=== PATIENT | female | born 1960 | race Caucasian/White ===

== ENCOUNTER 2017-11-24 09:19 | Emergency (ER) | payer MEDICARE, OTHER ==
[~2017-11-24] VITALS: Ht 167.6 cm; Wt 69.2 kg
[2017-11-24] MEDS ORDERED: ONDANSETRON ODT 4 MG PO ONE (10:00)
[2017-11-24] MEDS ORDERED: DIAZEPAM 5 MG TABLET PO ONE (10:00)
[2017-11-24] MEDS ORDERED: ONDANSETRON ODT 4 MG ONE (10:08)
[2017-11-24] MEDS ORDERED: DIAZEPAM 5 MG TABLET ONE (10:09)
[2017-11-24 11:54] VITALS: BP 120/75
== END 2017-11-24 11:58 | disposition home or self-care (01) ==
LOC: ED 11:05
DX: H81.393 Other peripheral vertigo, bilateral (principal); H81.13 Benign paroxysmal vertigo, bilateral; R51 Headache
CPT/HCPCS: 70450; 93005; 99284; Q0162

== ENCOUNTER 2019-09-27 09:08 | Day surgery (SDC) | payer OTHER ==
[2019-09-24 11:02] LABS: BASOPHILS # (AUTO) 0.03 x10^3/uL (0-0.1); BASOPHILS % (AUTO) 0 % (0-1); EOSINOPHILS # (AUTO) 0.12 x10^3/uL (0-0.4); EOSINOPHILS % (AUTO) 2 % (1-7); LYMPHOCYTES # (AUTO) 1.07 x10^3/uL (1-3.4); LYMPHOCYTES % (AUTO) 18 % (22-44); MD NO; MEAN CORPUSCULAR HEMOGLOBIN 32.1 pg (27.0-34.8); MEAN CORPUSCULAR HGB CONC 33.8 g/dL (32.4-35.8); MEAN CORPUSCULAR VOLUME 94.8 fL (80-100); MEAN PLATELET VOLUME 7.8 fL (7.4-10.4); MONOCYTES # (AUTO) 0.39 x10^3/uL (0.2-0.8); MONOCYTES % (AUTO) 7 % (2-9); NEUTROPHILS # (AUTO) 4.24 x10^3/uL (1.8-6.8); NEUTROPHILS % (AUTO) 73 % (42-75); PLATELET COUNT 260 x10^3/uL (130-400); RED CELL DISTRIBUTION WIDTH 12.6 % (9.6-15.2)
[2019-09-24 11:08] LABS: ALBUMIN 3.8 g/dL (3.4-5.0); ANION GAP 7 mmol/L (5-15); CALCIUM 8.8 mg/dL (8.5-10.1); CHLORIDE 108 mmol/L (98-107)
[2019-09-24 11:11] LABS: ALANINE AMINOTRANSFERASE 35 U/L (12-78); ALKALINE PHOSPHATASE 84 U/L (45-117); BILIRUBIN,TOTAL 0.7 mg/dL (0.2-1.0); CREATININE 0.67 mg/dL (0.55-1.02); TOTAL PROTEIN 7.7 g/dL (6.4-8.2)
[~2019-09-27] VITALS: Ht 167.6 cm; Wt 54.1 kg
[~2019-09-27 09:08] MED LIST: ATOR20TA37 PO; CIPR500T87 PO; ESTR0.5T PO; LOSA100T14 PO; METO25TA35 PO; METO25TA91 PO; METO5TAB57 PO; METR500T PO; PARO12.517 PO
[2019-09-27] MEDS ORDERED: LACTATED RINGERS 1,000 ML IV SCH (09:36)
[2019-09-27] MEDS ORDERED: OxyconTIN ER 10 MG TAB.ER PO ONE (10:00)
[2019-09-27] MEDS ORDERED: CHLORHEXIDINE 15 ML UDC MM ONE (10:00)
[2019-09-27] MEDS ORDERED: ACETAMINOPHEN 500 MG TABLET PO ONE (10:00)
[2019-09-27] MEDS ORDERED: MIDAZOLAM 1 MG/ML, 2ML ONE (10:12)
[2019-09-27] MEDS ORDERED: PROPOFOL 10 MG/ML, 20ML ONE (10:12)
[2019-09-27] MEDS ORDERED: LIDOCAINE-MPF 2% ,5ML ONE (10:12)
[2019-09-27] MEDS ORDERED: DEXAMETHASONE 4 MG/ML, 1ML ONE (10:12)
[2019-09-27] MEDS ORDERED: ROCURONIUM 10MG/ML,5ML ONE (10:12)
[2019-09-27] MEDS ORDERED: FENTANYL PF 250 MCG/5ML ONE (10:12)
[2019-09-27] MEDS ORDERED: GLYCOPYRROLATE 0.2MG/1ML, 5ML ONE (10:12)
[2019-09-27 10:26] VITALS: BP 138/92
[2019-09-27] MEDS ORDERED: BUPIVACAINE/PF-EPI 0.25% 1:200K ONE (10:47)
[2019-09-27] MEDS ORDERED: SILVER NITRATE STICK TP ONE (10:47)
[2019-09-27] MEDS ORDERED: ALBUTEROL/IPRATROPIUM 2.5MG/0.5MG, 3 ML NPPB PRN (11:00)
[2019-09-27] MEDS ORDERED: morphine SULFATE 10 MG/ML, 1ML IVPush PRN (11:00)
[2019-09-27] MEDS ORDERED: ONDANSETRON 2MG/ML, 2ML IVPush PRN (11:00)
[2019-09-27] MEDS ORDERED: FENTANYL PF 100 MCG/2ML IV PRN (11:00)
[2019-09-27] MEDS ORDERED: METOCLOPRAMIDE 5 MG/ML, 2ML IVPush PRN (11:00)
[2019-09-27] MEDS ORDERED: MIDAZOLAM 1 MG/ML, 2ML IV PRN (11:00)
[2019-09-27] MEDS ORDERED: ACETAMINOPHEN 325 MG TABLET PO PRN (11:00)
[2019-09-27] MEDS ORDERED: HALOPERIDOL 5 MG/ML IV PRN (11:00)
[2019-09-27] MEDS ORDERED: KETOROLAC 30 MG/1 ML IVPush PRN (11:00)
[2019-09-27] MEDS ORDERED: MEPERIDINE/PF 25MG/0.5ML IVPush PRN (11:00)
[2019-09-27] MEDS ORDERED: hydrALAzine 20 MG/ML, 1ML IV PRN (11:00)
[2019-09-27] MEDS ORDERED: OXYcodone 5 MG/5 ML ORAL.SOL UDC PO PRN (11:00)
[2019-09-27] MEDS ORDERED: EPHEDRINE 50 MG/ML, 1ML IM PRN (11:00)
[2019-09-27] MEDS ORDERED: DIAZEPAM 5 MG/ML, 2ML IVPush PRN (11:00)
[2019-09-27] MEDS ORDERED: METHOCARBAMOL 1,000 MG in DEXTROSE 5% 100 ML IV PRN (11:00)
[2019-09-27] MEDS ORDERED: LABETALOL 5MG/ML, 20ML IV PRN (11:00)
[2019-09-27] MEDS ORDERED: HYDROcodone/APAP 7.5-325MG/15ML UDC PO PRN (11:00)
[2019-09-27] MEDS ORDERED: DIPHENHYDRAMINE 50 MG/ML, 1ML IVPush PRN (11:00)
[2019-09-27] MEDS ORDERED: HYDROmorphone 1 MG/ML, 1ML INJ IVPush PRN (11:00)
[2019-09-27] MEDS ORDERED: ONDANSETRON 2MG/ML, 2ML ONE (11:00)
[2019-09-27] MEDS ORDERED: EPHEDRINE 50 MG/ML, 1ML IVPush PRN (11:00)
[2019-09-27] MEDS ORDERED: CLINDAMYCIN 150 MG/ML, 6ML ONE (11:05)
[2019-09-27] MEDS ORDERED: LORazepam 2 MG/ML, 1ML ONE (12:27)
[2019-09-27] MEDS: LORazepam 2 MG/ML, 1ML IVPush PRN ×2 (12:33→12:43)
== END 2019-09-27 23:25 | disposition home or self-care (01) ==
LOC: OUT 09:08 → 4NE 13:00 → OUT 23:25
PROVIDERS: ATTEND Obstetrics & Gynecology
DX: R10.2 Pelvic and perineal pain (principal); Z11.59 Encounter for screening for other viral diseases; D27.0 Benign neoplasm of right ovary; N73.6 Female pelvic peritoneal adhesions (postinfective); I10 Essential (primary) hypertension; F32.9 Major depressive disorder, single episode, unspecified; F41.9 Anxiety disorder, unspecified; Z79.899 Other long term (current) drug therapy; Z88.0 Allergy status to penicillin; Z88.2 Allergy status to sulfonamides; Z88.8 Allergy status to other drugs, medicaments and biological substances; Z90.710 Acquired absence of both cervix and uterus; Z98.890 Other specified postprocedural states
CPT/HCPCS: 36415; 58661; 80053; 85025; 86850; 86900; 88112; 88305; 93005; J1100; J2060; J2250; J2405; J2704; J3010; J7120; U0001; G0378

== ENCOUNTER 2019-09-28 18:37 | Emergency (ER) | payer OTHER ==
[~2019-09-28] VITALS: Ht 167.6 cm; Wt 57.8 kg
[2019-09-28 18:40] VITALS: BP 188/94
--- NOTE | 2019-09-28 19:39 | NUR ---
CAT INSERTED PER POLICY AND MD ORDER. NORBERTO FERNANDEZ IN ROOM TO ASSIST. PT IMMEDIATELY DRAINED 1000ML, CLAMPED AT THIS TIME TO PREVENT BLADDER SPASMS
--- NOTE | 2019-09-28 20:15 | NUR ---
PT HAD A TOTAL OF 1500ML URINE OUTPUT VIA CATH BEFORE DC HOME. PT EDUCATED ON HOW TO DRAIN BAG AND PROPER CATH CARE.
== END 2019-09-28 20:17 | disposition home or self-care (01) ==
LOC: ED 20:00
DX: R33.8 Other retention of urine (principal); I10 Essential (primary) hypertension; Z87.891 Personal history of nicotine dependence; Z90.89 Acquired absence of other organs; Z90.710 Acquired absence of both cervix and uterus
CPT/HCPCS: 51702; 99284